=== PATIENT | female | born 1995 | race Caucasian/White ===

== ENCOUNTER 2018-06-04 11:03 | Emergency (ER) | payer BC, OTHER, MEDICAID ==
[~2018-06-04] VITALS: Ht 157.5 cm; Wt 103.2 kg
[~2018-06-04 11:03] MED LIST: no home meds
[2018-06-04 12:11] LABS: BASO # 0.1 10^3/uL (0.0-0.2); BASO % 0.8 % (0.0-1.0); EOS # 0.6 10^3/uL (0.0-0.50); EOS % 6.7 % (0.0-3.0); HEMATOCRIT 39.6 % (36.0-47.0); HEMOGLOBIN 13.5 g/dl (12.0-15.5); LYMPH # 2.3 10^3/uL (1.5-6.5); LYMPH % 24.8 % (24.0-44.0); MEAN CORPUSCULAR HEMOGLOBIN 28.4 pg (27.0-33.0); MEAN CORPUSCULAR HGB CONC 34.1 g/dl (32.0-36.5); MEAN CORPUSCULAR VOLUME 83.4 fl (80.0-96.0); MONO # 0.5 10^3/uL (0.0-0.8); MONO % 5.8 % (0.0-5.0); NEUTROPHILS # 5.7 10^3/uL (1.8-7.7); NEUTROPHILS % 61.6 % (36.0-66.0); PLATELET COUNT, AUTOMATED 313 10^3/uL (150-450); RED BLOOD COUNT 4.75 10^6/uL (4.00-5.40); WHITE BLOOD COUNT 9.3 10^3/uL (4.0-10.0)
--- NOTE | 2018-06-04 13:35 | REP ---
Pelvic sonography: History: Cramping and vaginal bleeding. Findings: Transabdominal and transvaginal scanning are performed. Uterine dimensions are normal at 7.2 x 3.4 x 4.4 cm. Endometrial echo 0.7 cm thick and placed. Uterine texture is homogeneous. A normal right ovary is seen measuring 2.6 x 2.0 x 1.8 cm. Left ovary measures 2.4 x 2.2 x 1.7 cm. Doppler flow is normal in both ovaries. Resistive indices are measured at 0.57 on the right and 0.62 on the left. There is a 1.9 x 1.5 x 1.7 cm complex area in the left ovary which is most likely a small ovarian dermoid. There are reflective echoes within this which cast acoustic shadowing which may reflect calcification. No free fluid is seen in the cul-de-sac. Impression: 1.9 cm probable ovarian dermoid left ovary. Otherwise normal pelvic sonography. Electronically Signed by Shiraz Castro MD 06/04/2018 04:41 P
[2018-06-04] MEDS ORDERED: BACT800T5 PO (14:11)
[2018-06-04 14:22] VITALS: BP 124/76
--- NOTE | 2018-06-09 12:34 | ED PDOC ---
Post-Departure Follow-Up dr nunes faxed formal report of pelvic us for fu Richard Wiggins MD Jun 09, 2018 12:34
== END 2018-06-04 14:27 | disposition home or self-care (01) ==
LOC: M ED 11:03
DX: N83.202 Unspecified ovarian cyst, left side (principal); N30.00 Acute cystitis without hematuria; F41.9 Anxiety disorder, unspecified; F33.9 Major depressive disorder, recurrent, unspecified

== ENCOUNTER 2018-06-06 01:07 | Emergency (ER) | payer BC, OTHER, MEDICAID ==
[~2018-06-06] VITALS: Ht 157.5 cm; Wt 103.2 kg
[~2018-06-06 01:07] MED LIST changes: +BACT800T5 PO
[2018-06-06] MEDS ORDERED: WELLTAB40 PO (01:11)
[2018-06-06] MEDS ORDERED: PROZ40CA PO (01:11)
[2018-06-06 02:41] LABS: HEMATOCRIT 42.7 % (36.0-47.0); HEMOGLOBIN 14.2 g/dl (12.0-15.5); MEAN CORPUSCULAR HEMOGLOBIN 28.5 pg (27.0-33.0); MEAN CORPUSCULAR HGB CONC 33.3 g/dl (32.0-36.5); MEAN CORPUSCULAR VOLUME 85.7 fl (80.0-96.0); PLATELET COUNT, AUTOMATED 255 10^3/uL (150-450); RED BLOOD COUNT 4.98 10^6/uL (4.00-5.40); WHITE BLOOD COUNT 8.4 10^3/uL (4.0-10.0)
[2018-06-06 02:52] LABS: HCG, SERUM QUALITATIVE NEGATIVE (NEGATIVE)
[2018-06-06 03:25] LABS: ALBUMIN 3.6 GM/DL (3.2-5.2); ALT/SGPT 20 U/L (12-78); BILIRUBIN,DIRECT < 0.1 MG/DL (0.0-0.2); BILIRUBIN,TOTAL 0.3 MG/DL (0.2-1.0); BLOOD UREA NITROGEN 9 MG/DL (7-18); CALCIUM LEVEL 8.4 MG/DL (8.5-10.1); CARBON DIOXIDE LEVEL 20 MEQ/L (21-32); CHLORIDE LEVEL 107 MEQ/L (98-107); CREATININE FOR GFR 0.73 MG/DL (0.55-1.30); GLUCOSE, FASTING 75 MG/DL (70-100); POTASSIUM SERUM 3.7 MEQ/L (3.5-5.1); SALICYLATE LEVEL < 1.7 MG/DL (5.0-30.0); SODIUM LEVEL 139 MEQ/L (136-145); TOTAL PROTEIN 7.1 GM/DL (6.4-8.2)
[2018-06-06 03:26] LABS: ACETAMINOPHEN LEVEL < 2.0 UG/ML (10.0-30.0); ETHYL ALCOHOL (ETHANOL) < 0.003 % (0.000-0.010)
[2018-06-06 03:38] VITALS: BP 130/73
== END 2018-06-06 03:39 | disposition home or self-care (01) ==
LOC: M ED 01:07
DX: F33.9 Major depressive disorder, recurrent, unspecified (principal); Z91.5 Personal history of self-harm; Z79.899 Other long term (current) drug therapy
CPT/HCPCS: 36415; 80048; 80076; 84443; 84703; 85027; 99284; G0480

== ENCOUNTER → 2018-07-27 | Outpatient (REF) | payer OTHER, MEDICAID ==
[~2018-07-27] MED LIST changes: +PROZ40CA PO; +WELLTAB40 PO
== END ==
LOC: M LAB REF 19:04
PROVIDERS: ATTEND Physician Assistant Medical
DX: J02.9 Acute pharyngitis, unspecified (principal)

== ENCOUNTER → 2018-08-12 | Outpatient (CLI) | payer BC, OTHER, MEDICAID ==
--- NOTE | 2018-08-12 15:42 | REP ---
Clinical: Follow up left ovarian lesion. Technique: Transabdominal pelvic ultrasound followed by transvaginal examination for better evaluation of the endometrium and adnexa with color Doppler evaluation of the ovaries. Comparison: 06/04/2018. Findings: Normal anteverted uterus measures 7.6 x 3.2 x 4.5 cm. Endometrial complex measures 3.7 mm thickness. Trace amount of fluid in the endocervical canal and small cervical calcification are nonspecific and likely incidental findings. The bilateral ovaries are normal in vascularity without torsion. The right ovary is normal in appearance and measures 3.3 x 1.8 x 2.6 cm. The left ovary measures 4.5 x 2.6 x 2.1 cm and again includes a complex hyperechoic lesion with cystic component measuring approximately 2.2 x 1.6 x 1.7 cm likely representing dermoid/teratoma. No pelvic fluid or adnexal mass lesion. Impression: 1. Essentially normal uterus and right ovary. 2. Complex lesion in the left ovary similar to prior examination likely representing dermoid/teratoma. Electronically Signed by Bandar Peterson MD 08/12/2018 03:34 P
== END ==
LOC: M RAD 14:15
PROVIDERS: ATTEND Specialist
DX: N83.292 Other ovarian cyst, left side (principal)

== ENCOUNTER 2018-09-20 09:11 | Day surgery (SDC) | payer BC, OTHER, MEDICAID ==
[~2018-09-20] VITALS: Ht 157.5 cm; Wt 102.9 kg
[2018-09-20 09:39] LABS: HEMATOCRIT 39.8 % (36.0-47.0); HEMOGLOBIN 13.4 g/dl (12.0-15.5); MEAN CORPUSCULAR HEMOGLOBIN 29.1 pg (27.0-33.0); MEAN CORPUSCULAR HGB CONC 33.7 g/dl (32.0-36.5); MEAN CORPUSCULAR VOLUME 86.5 fl (80.0-96.0); PLATELET COUNT, AUTOMATED 247 10^3/uL (150-450); WHITE BLOOD COUNT 9.9 10^3/uL (4.0-10.0)
[2018-09-20 10:05] LABS: URINE PREG TEST NEGATIVE (NEGATIVE)
[2018-09-20] MEDS ORDERED: ROCURONIUM BROMIDE 50 MG/5 ML VIAL As Ordered ONE (10:29)
[2018-09-20] MEDS ORDERED: PROPOFOL 200 MG/20 ML VIAL As Ordered ONE (10:29)
[2018-09-20] MEDS ORDERED: fentaNYL 250 MCG/5 ML INJECTION (J3010) As Ordered ONE (10:29)
[2018-09-20] MEDS ORDERED: LIDOCAINE 2% INJ 100 MG/5 ML SDV (FOR ANES.) As Ordered ONE (10:29)
[2018-09-20] MEDS ORDERED: MIDAZOLAM INJ 2 MG/2 ML VIAL (J2250) As Ordered ONE (10:30)
[2018-09-20] MEDS ORDERED: BUPIVACAINE HCL 0.25% 30 ML VIAL As Ordered ONE (11:13)
[2018-09-20] MEDS ORDERED: KETOROLAC 60 MG/2 ML VIAL (J1885) As Ordered ONE (12:12)
[2018-09-20] MEDS ORDERED: ONDANSETRON 4MG/2ML VIAL (J2405) As Ordered ONE (12:12)
[2018-09-20] MEDS ORDERED: GLYCOPYRROLATE INJ 0.2 MG/ML 2 ML VIAL As Ordered ONE (12:12)
[2018-09-20] MEDS ORDERED: LR 1,000 ML IV SCH ×2 (13:15)
[2018-09-20] MEDS ORDERED: ONDANSETRON 4MG/2ML VIAL (J2405) IV PRN (13:15)
[2018-09-20] MEDS ORDERED: PERCOCET 5MG/325MG TAB PO PRN ×2 (13:15)
[2018-09-20] MEDS ORDERED: fentaNYL 100 MCG/2 ML INJECTION (J3010) IV PRN (13:15)
[2018-09-20] MEDS ORDERED: OXYC1TAB23 PO (13:16)
[2018-09-20] MEDS ORDERED: IBUP-1022 PO (13:21)
--- NOTE | 2018-09-20 13:55 | RO ---
DATE OF PROCEDURE: 09/20/2018 PREOPERATIVE DIAGNOSIS: Left ovarian dermoid cyst. POSTOPERATIVE DIAGNOSES: 1. Left ovarian dermoid cyst. 2. Endometriosis. PROCEDURE: SURGEON: Roberto Bañuelos MD BRAIDING OPERATOR: Yue Zavala MD ANESTHESIA: General endotracheal. ESTIMATED BLOOD LOSS: 10 mL. URINE OUTPUT: 300 mL. FINDINGS: 2 cm dermoid cyst on the left ovary near the origin of the utero-ovarian ligament. Normal appearing right ovary. Normal appearing fallopian tube. Stage 1 endometriosis involving posterior cul-de-sac, left ovarian fossa. OPERATIVE SUMMARY: Patient taken to the operating room where general endotracheal anesthesia was induced. She was prepped and draped in a sterile fashion in the dorsal lithotomy position. A Shellcatch uterine tenaculum was placed as a manipulator. A Miguel catheter was placed. Periumbilical incision made with a scalpel. A Veress needle was placed through this incision while tenting up on the skin of the abdomen. Intra-abdominal location of the Veress needle was assessed using a saline filled syringe. Pneumoperitoneum was created. The Veress needle was removed. An 11 mm trocar using Black coiniport was inserted through this incision. An 11 scope with camera was used to visual the abdomen and pelvis. Three 5 mm suprapubic ports were placed under direct visualization. The left ovary was elevated with a grasping instrument. It was stabilized with a second grasping instrument. The Harmonic scalpel was used to dissect dermoid cyst from the left ovary. This was dissected out in its entirety. This was removed through the suprapubic port in several pieces. This cyst was small, approximately 2 cm in size. The right ovary was inspected thoroughly and appeared to be normal and did not continue any ovarian cyst. Multiple endometriosis implants were noted in the posterior cul-de-sac and left ovarian fossa. Harmonic scalpel was used to coagulate endometriosis implants that were away from bowel or ureter. Numerous implants were ablated. The pneumoperitoneum was released. All instruments were removed. Skin was closed with #4-0 Monocryl subcuticular sutures. Sponge, instrument and needle counts were correct. Yue Zavala MD assisted with all aspects of the proceudre. He helped place the ports. He helped dissect the cyst from the ovary. He was an integral part of the procedure. LEEROY
[2018-09-20 14:24] VITALS: BP 127/73
[2018-09-20] MEDS ORDERED: LR 1,000 ML IV ONE (14:45)
== END 2018-09-20 14:40 | disposition home or self-care (01) ==
LOC: M SDC 09:11
PROVIDERS: ATTEND Specialist
DX: D27.1 Benign neoplasm of left ovary (principal); N80.3 Endometriosis of pelvic peritoneum; F41.9 Anxiety disorder, unspecified; F32.9 Major depressive disorder, single episode, unspecified; F43.10 Post-traumatic stress disorder, unspecified; E66.9 Obesity, unspecified; Z68.42 Body mass index [BMI] 45.0-49.9, adult

== ENCOUNTER → 2018-11-22 | Outpatient (REF) | payer OTHER, MEDICAID ==
[~2018-11-22] MED LIST changes: +IBUP-1022 PO; +OXYC1TAB23 PO
[2018-11-23 09:46] LABS: CHLAMYDIA DNA AMPLIFICATION NEGATIVE (NEGATIVE); GC DNA AMPLIFICATION NEGATIVE (NEGATIVE)
== END ==
LOC: M LAB REF 19:04
PROVIDERS: ATTEND Physician Assistant
DX: R30.0 Dysuria (principal)

== ENCOUNTER → 2019-05-10 | Outpatient (CLI) | payer BC, OTHER ==
[2019-05-10 16:10] LABS: BASO % 0.4 % (0.0-1.0); EOS # 0.5 10^3/uL (0.0-0.5); EOS % 5.1 % (0.0-3.0); HEMATOCRIT 39.5 % (36.0-47.0); HEMOGLOBIN 13.3 g/dl (12.0-15.5); LYMPH # 1.9 10^3/uL (1.5-5.0); LYMPH % 19.8 % (24.0-44.0); MEAN CORPUSCULAR HGB CONC 33.7 g/dl (32.0-36.5); MEAN CORPUSCULAR VOLUME 86.2 fl (80.0-96.0); MONO # 0.6 10^3/uL (0.0-0.8); MONO % 6.2 % (0.0-5.0); NEUTROPHILS # 6.7 10^3/uL (1.5-8.5); NEUTROPHILS % 68.1 % (36.0-66.0); PLATELET COUNT, AUTOMATED 221 10^3/uL (150-450); RED BLOOD COUNT 4.58 10^6/uL (4.00-5.40); WHITE BLOOD COUNT 9.8 10^3/uL (4.0-10.0)
[2019-05-10 17:31] LABS: CHLAMYDIA DNA AMPLIFICATION NEGATIVE (NEGATIVE); GC DNA AMPLIFICATION NEGATIVE (NEGATIVE)
[2019-05-13 11:09] LABS: HEPATITIS C VIRUS ABY INDEX 0.2 INDEX (<0.8); HIV 1&2 SCREEN CENTAUR NEGATIVE (NEGATIVE); RUBELLA IgG QUALITATIVE IMMUNE (IMMUNE)
== END ==
LOC: M PLALAB 13:24
PROVIDERS: ATTEND Advanced Practice Midwife
DX: Z34.01 Encounter for supervision of normal first pregnancy, first trimester (principal); Z3A.11 11 weeks gestation of pregnancy

== ENCOUNTER → 2019-06-07 | Outpatient (CLI) | payer BC, MEDICAID ==
--- NOTE | 2019-06-08 05:10 | REP ---
Clinical: Anatomical evaluation. Comparison: None . Findings: Examination demonstrates a single live intrauterine in breech presentation. motion is identified by technologist. Placenta is noted anterior and grade zero without evidence for placenta previa or abruption. Amniotic fluid volume is normal. Cervix measures 3.1 cm in length and appears closed. No evidence for nuchal cord. Gestational age by current measurements 18 weeks 0 days with AVNI 11/08/2019 . FHR equals 147 beats per minute. BPD 4.0 cm 18 weeks 1 day HC 15.3 cm 18 weeks 2 days AC 11.8 cm 17 weeks 4 days FL 2.7 cm 18 weeks 2 days HL 2.8 cm 19 weeks 0 days HC/AC ratio 1.30 Estimated weight 216 grams ( 44th percentile). Anatomical assessment demonstrates normal structures including cranium, choroid plexus, cavum, cerebellum/posterior fossa, facial features, lungs, four-chamber heart/ventricular outflow tracts, diaphragm, stomach, cord insertion/three-vessel cord, kidneys/bladder, spine, and extremities. Impression: Single live intrauterine in breech presentation demonstrating appropriate estimated weight. 2. Anatomical assessment is complete and normal. No gross abnormalities are identified.
== END ==
LOC: M WHC 12:49
PROVIDERS: ATTEND Advanced Practice Midwife
DX: Z34.82 Encounter for supervision of other normal pregnancy, second trimester (principal)

== ENCOUNTER 2019-07-05 11:30 | Outpatient (CLI) | payer BC, MEDICAID, OTHER ==
[~2019-07-05] VITALS: Ht 160 cm; Wt 109.9 kg
[2019-07-05 11:49] VITALS: BP 134/87
[2019-07-05] MEDS ORDERED: FLUO20CA20 PO (12:05)
[2019-07-05] MEDS ORDERED: PRENTAB9 PO (12:05)
== END 2019-07-05 12:30 | disposition home or self-care (01) ==
LOC: M LDO 11:30
PROVIDERS: ATTEND Obstetrics & Gynecology
DX: O26.852 Spotting complicating pregnancy, second trimester (principal); Z3A.22 22 weeks gestation of pregnancy; Z79.899 Other long term (current) drug therapy
CPT/HCPCS: 76815; G0378; G0463

== ENCOUNTER → 2019-08-02 | Outpatient (REF) | payer OTHER, MEDICAID ==
[~2019-08-02] MED LIST changes: +FLUO20CA20 PO; +PRENTAB9 PO
[2019-08-02 11:56] LABS: HEMATOCRIT 34.5 % (36.0-47.0); HEMOGLOBIN 11.9 g/dl (12.0-15.5); MEAN CORPUSCULAR HEMOGLOBIN 30.7 pg (27.0-33.0); MEAN CORPUSCULAR HGB CONC 34.5 g/dl (32.0-36.5); MEAN CORPUSCULAR VOLUME 89.1 fl (80.0-96.0); PLATELET COUNT, AUTOMATED 193 10^3/uL (150-450); RED BLOOD COUNT 3.87 10^6/uL (4.00-5.40); WHITE BLOOD COUNT 8.9 10^3/uL (4.0-10.0)
== END ==
LOC: M PLALAB 09:22
PROVIDERS: ATTEND Advanced Practice Midwife
DX: Z34.02 Encounter for supervision of normal first pregnancy, second trimester (principal); Z3A.00 Weeks of gestation of pregnancy not specified
CPT/HCPCS: 82950; 85027; 86850; 86900; 86901; J2790

== ENCOUNTER → 2019-10-11 | Outpatient (REF) | payer OTHER, MEDICAID | LOC: M SFHCWAGY 10:13 | PROVIDERS: ATTEND Obstetrics & Gynecology | DX: Z34.83 Encounter for supervision of other normal pregnancy, third trimester (principal); Z3A.36 36 weeks gestation of pregnancy ==

== ENCOUNTER 2019-11-11 04:57 | Inpatient (IN) | payer BC, OTHER, MEDICAID ==
[~2019-11-11] VITALS: Ht 160 cm; Wt 123.6 kg
[2019-11-11 05:19] VITALS: BP 133/79
[2019-11-11] MEDS ORDERED: OXYTOCIN 30 UNITS IN 0.9% NaCl 500ML IV BAG (J2590) As Ordered ONE (06:22)
[2019-11-11 06:45] VITALS: BP 134/74
[2019-11-11 07:00] VITALS: BP 139/69
[2019-11-11 07:10] LABS: HEMATOCRIT 35.8 % (36.0-47.0); HEMOGLOBIN 12.2 g/dl (12.0-15.5); MEAN CORPUSCULAR HEMOGLOBIN 28.4 pg (27.0-33.0); MEAN CORPUSCULAR HGB CONC 34.1 g/dl (32.0-36.5); MEAN CORPUSCULAR VOLUME 83.3 fl (80.0-96.0); PLATELET COUNT, AUTOMATED 227 10^3/uL (150-450)
[2019-11-11 07:15] VITALS: BP 139/64
[2019-11-11 08:24] LABS: ALT/SGPT 22 U/L (12-78); BILIRUBIN,TOTAL 0.4 MG/DL (0.2-1.0); CREATININE FOR GFR 0.56 MG/DL (0.55-1.30); GLOMERULAR FILTRATION RATE > 60.0 (>60); LDH LACTATE DEHYDROGENASE 305 U/L (84-246); URIC ACID 2.4 MG/DL (2.6-6.0)
--- NOTE | 2019-11-11 09:05 | IPNPDOC ---
Text Note Date of Service The patient was seen on 11/11/19. NOTE Pt [place] screen 18.. Started prozac 20mg about a month ago. Reports feeling a bit better but not great. Has call into her psychiatrist Increased prozac to 40mg daily. VS,Fishbone, I+O VS, Fishbone, I+O Laboratory Tests 11/11/19 06:10 Vital Signs Date Time Temp Pulse Resp B/P (MAP) Pulse Ox O2 Delivery O2 Flow Rate FiO2 11/11/19 07:15 80 139/64 (89) 11/11/19 05:19 97.7 18 Jahaira John CNM Nov 11, 2019 09:05
[2019-11-11] MEDS ORDERED: FLUO20CA22 PO (09:06)
[2019-11-11 09:19] VITALS: BP 137/77
[2019-11-11] MEDS ORDERED: MOM 30ML SUSPENSION UDC PO PRN (10:15)
[2019-11-11] MEDS ORDERED: ACETAMINOPHEN 500 MG TAB PO PRN (10:15)
[2019-11-11] MEDS ORDERED: METHYLERGONOVINE MALEATE 0.2 MG TAB PO PRN (10:15)
[2019-11-11] MEDS ORDERED: IBUPROFEN 600MG TAB PO PRN (10:15)
[2019-11-11] MEDS ORDERED: DIBUCAINE 1% OINTMENT 30GM TOP PRN (10:15)
[2019-11-11] MEDS ORDERED: ACETAMINOPHEN TAB 650MG DOSE (2X325MG) PO PRN (10:15)
[2019-11-11] MEDS ORDERED: ANUSOL HC CREAM 30GM TOP PRN (10:15)
[2019-11-11] MEDS ORDERED: RHOGAM 300 MCG (1500 IU) INJ (J2790) IM SCH (10:15)
[2019-11-11] MEDS ORDERED: MEASLES,MUMPS,RUBELLA VACCINE INJ (MMR-II) (90707) SC SCH (10:15)
[2019-11-11] MEDS: FLUoxetine 20 MG CAP PO SCH (10:32)
[2019-11-11] MEDS ORDERED: LIDOCAINE 1% SDV 5ML VIAL IM ONE (12:45)
[2019-11-11] MEDS ORDERED: LIDOCAINE 1% MDV 20ML VIAL IM ONE (13:00)
[2019-11-11 18:08] VITALS: BP 119/63
[2019-11-11] MEDS: IBUPROFEN 800 MG TAB PO PRN (19:56)
[2019-11-11] MEDS: DOCUSATE SODIUM 100 MG CAP PO PRN (19:56)
[2019-11-12 06:03] VITALS: BP 112/70
--- NOTE | 2019-11-12 07:23 | IPNPDOC ---
Text Note Date of Service The patient was seen on 11/12/19. NOTE PP#1 Feels well. Adequate pain management. . Voiding VSS, afebrile, normotensive Breasts soft, nipples intact Fundus firm, NT, down 1 FB Lochia rubra scant without odor Perineum intact PP#1 Prozac dose increased yesterday. Routine care. Anticipate D/C in am VS,Fishbone, I+O VS, Fishbone, I+O Vital Signs Date Time Temp Pulse Resp B/P (MAP) Pulse Ox O2 Delivery O2 Flow Rate FiO2 11/12/19 06:03 97.8 56 17 112/70 (84) 98 Room Air I&O- Last 24 Hours up to 6 AM 11/12/19 06:00 Output Total 300 ml Balance -300 ml Jahaira John CNM Nov 12, 2019 07:23
[2019-11-12] MEDS: IBUPROFEN 800 MG TAB PO PRN (07:26)
[2019-11-12] MEDS: FLUoxetine 20 MG CAP PO SCH (08:50)
[2019-11-12] MEDS: PRENATAL VITAMINS CHEWABLE TABLET PO SCH ×2 (08:50→08:56)
[2019-11-12 18:00] VITALS: BP 112/61
[2019-11-12] MEDS: DOCUSATE SODIUM 100 MG CAP PO PRN (20:13)
[2019-11-13] MEDS: IBUPROFEN 800 MG TAB PO PRN (05:53)
[2019-11-13 06:00] VITALS: BP 124/71
[2019-11-13] MEDS: FLUoxetine 20 MG CAP PO SCH (08:39)
[2019-11-13] MEDS ORDERED: ACET-683 PO (08:59)
[2019-11-13] MEDS ORDERED: IBUP80TA PO (08:59)
[2019-11-13 17:43] VITALS: BP 116/60
== END 2019-11-13 18:55 | disposition home or self-care (01) | DRG 560 ==
LOC: M LDO 04:57 → M LDI 05:50 → M OBS 09:06
PROVIDERS: ADMIT Obstetrics & Gynecology; ATTEND Obstetrics & Gynecology
PROC: 10E0XZZ Delivery of Products of Conception, External Approach (ICD-10-PCS; principal; 2019-11-11)
PROC: 0HQ9XZZ Repair Perineum Skin, External Approach (ICD-10-PCS; 2019-11-11)
DX: O48.0 Post-term pregnancy (principal); O99.344 Other mental disorders complicating childbirth; F32.9 Major depressive disorder, single episode, unspecified; Z37.0 Single live birth; Z3A.40 40 weeks gestation of pregnancy; F43.10 Post-traumatic stress disorder, unspecified; F41.9 Anxiety disorder, unspecified; O70.0 First degree perineal laceration during delivery

== ENCOUNTER → 2020-02-20 | Outpatient (CLI) | payer BC, OTHER, MEDICAID ==
[~2020-02-20] MED LIST changes: +ACET-683 PO; +FLUO20CA22 PO; +IBUP80TA PO
[2020-02-20 15:36] LABS: BASO # 0.1 10^3/uL (0.0-0.2); BASO % 1.1 % (0.0-1.0); EOS # 0.7 10^3/uL (0.0-0.5); EOS % 8.6 % (0.0-3.0); HEMATOCRIT 38.5 % (36.0-47.0); HEMOGLOBIN 12.8 g/dl (12.0-15.5); LYMPH % 25.7 % (24.0-44.0); MEAN CORPUSCULAR HEMOGLOBIN 28.3 pg (27.0-33.0); MEAN CORPUSCULAR HGB CONC 33.2 g/dl (32.0-36.5); MEAN CORPUSCULAR VOLUME 85.2 fl (80.0-96.0); MONO # 0.5 10^3/uL (0.0-0.8); MONO % 6.2 % (0.0-5.0); NEUTROPHILS # 4.4 10^3/uL (1.5-8.5); NEUTROPHILS % 58.1 % (36.0-66.0); PLATELET COUNT, AUTOMATED 219 10^3/uL (150-450); RED BLOOD COUNT 4.52 10^6/uL (4.00-5.40); WHITE BLOOD COUNT 7.6 10^3/uL (4.0-10.0)
[2020-02-20 16:12] LABS: ALBUMIN 3.5 GM/DL (3.2-5.2); ALT/SGPT 24 U/L (12-78); BILIRUBIN,TOTAL 0.5 MG/DL (0.2-1.0); BLOOD UREA NITROGEN 11 MG/DL (7-18); CARBON DIOXIDE LEVEL 27 MEQ/L (21-32); CHLORIDE LEVEL 108 MEQ/L (98-107); CREATININE FOR GFR 0.76 MG/DL (0.55-1.30); GLOMERULAR FILTRATION RATE > 60.0 (>60); GLUCOSE, FASTING 108 MG/DL (70-100); POTASSIUM SERUM 4.1 MEQ/L (3.5-5.1); SODIUM LEVEL 141 MEQ/L (136-145)
[2020-02-20 16:14] LABS: CORTISOL BASELINE 19.1 UG/DL (4.3-22.4)
[2020-02-20 16:15] LABS: ESTRADIOL < 19.0 PG/ML; PROGESTERONE 0.26 NG/ML
[2020-02-28 01:10] LABS: NORFLUOXETINE LEVEL 306 ng/mL (72-258); PROZAC (FLUOXETINE) 394 ng/mL (91-302)
== END ==
LOC: M PLALAB 13:15
PROVIDERS: ATTEND Nurse Practitioner Psychiatric/Mental Health
DX: F33.2 Major depressive disorder, recurrent severe without psychotic features (principal)
CPT/HCPCS: 36415; 80053; 82533; 82670; 84144; 84439; 84443; 85025; G0480

== ENCOUNTER → 2020-05-17 | Outpatient (REF) | payer OTHER, MEDICAID | LOC: M SFHCWAGY 16:48 | PROVIDERS: ATTEND Obstetrics & Gynecology | DX: Z11.3 Encounter for screening for infections with a predominantly sexual mode of transmission (principal) ==

== ENCOUNTER → 2020-08-14 | Outpatient (CLI) | payer BC, OTHER, MEDICAID ==
--- NOTE | 2020-08-14 21:59 | ECGEPIP ---
[facility] Test Date: 2020-08-14 Pat Name: MARZENA DOVER Department: Room: - Gender: Female Relocation Director: : [id number] Requested By: Brook Staerns Order Number: [id number] Reading MD: Sam Zimmerman Measurements Intervals [place] Rate: 62 P: 42 SD: 146 QRS: 14 QRSD: 86 T: 22 QT: 428 QTc: 434 Interpretive Statements Normal sinus rhythm Normal Electronically Signed on 08-14-2020 21:59:02 EDT by Sam Zimmerman
== END ==
LOC: M EKG 14:49
PROVIDERS: ATTEND Nurse Practitioner Psychiatric/Mental Health
DX: F90.0 Attention-deficit hyperactivity disorder, predominantly inattentive type (principal); I49.9 Cardiac arrhythmia, unspecified

== ENCOUNTER 2020-09-24 02:01 | Emergency (ER) | payer BC, OTHER, MEDICAID ==
[~2020-09-24] VITALS: Ht 160 cm; Wt 102.0 kg
[2020-09-24] MEDS ORDERED: ADDE10CA3 PO (02:12)
[2020-09-24] MEDS ORDERED: BUSP10TA PO (02:15)
[2020-09-24] MEDS ORDERED: ETON1VAG3 VG (02:15)
[2020-09-24] MEDS ORDERED: CETI-24 PO (02:15)
[2020-09-24] MEDS ORDERED: FLUO60TA PO (02:15)
[2020-09-24 05:31] LABS: URINE PREG TEST NEGATIVE (NEGATIVE)
[2020-09-24] MEDS ORDERED: dexameTHASONE 20MG/5ML VIAL (J1100 PER 1MG) IM ONE (06:30)
[2020-09-24] MEDS ORDERED: IBUPROFEN 800 MG TAB PO ONE (06:30)
[2020-09-24] MEDS ORDERED: ATRO0.063 INH (07:16)
[2020-09-24] MEDS ORDERED: CEPALOZ8 PO (07:16)
--- NOTE | 2020-09-24 07:20 | REPVR ---
PROCEDURE INFORMATION: Exam: XR Chest Exam date and time: 09/24/2020 6:38 AM Age: 25 years old Clinical indication: Other: Pleurisy TECHNIQUE: Imaging protocol: XR of the chest. Views: 2 views. COMPARISON: No relevant prior studies available. FINDINGS: Lungs: Unremarkable. No consolidation. Pleural spaces: Unremarkable. No pleural effusion. No pneumothorax. Heart/Mediastinum: Unremarkable. No cardiomegaly. Bones/joints: Unremarkable. IMPRESSION: No acute findings. Electronically signed by: Sarah Aragon On 09/24/2020 07:20:31 AM
[2020-09-24 07:27] VITALS: BP 129/81
== END 2020-09-24 07:28 | disposition home or self-care (01) ==
LOC: M ED 02:01
DX: J02.9 Acute pharyngitis, unspecified (principal); T88.1XXA Other complications following immunization, not elsewhere classified, initial encounter
CPT/HCPCS: 71046; 84703; 87798; 96372; 99283; J1100

== ENCOUNTER → 2020-12-24 | Outpatient (REF) ==
[~2020-12-24] MED LIST changes: +ADDE10CA3 PO; +ATRO0.063 INH; +BUSP10TA PO; +CEPALOZ8 PO; +CETI-24 PO; +ETON1VAG3 VG; +FLUO60TA PO
== END ==
LOC: M LABSMTC 11:13
PROVIDERS: ATTEND Family Medicine
DX: Z20.822 Contact with and (suspected) exposure to COVID-19 (principal); Z11.59 Encounter for screening for other viral diseases

== ENCOUNTER → 2021-03-15 | Outpatient (REF) | LOC: M LABSMTC 09:58 | PROVIDERS: ATTEND Family Medicine | DX: Z20.828 Contact with and (suspected) exposure to other viral communicable diseases (principal); Z11.52 Encounter for screening for COVID-19 ==

== ENCOUNTER → 2021-03-19 | Outpatient (REF) ==
[2021-03-19 11:18] LABS: RSV AMPLIFICATION NEGATIVE (NEGATIVE)
== END ==
LOC: M EMP 07:56
PROVIDERS: ATTEND Family Medicine
DX: Z20.822 Contact with and (suspected) exposure to COVID-19 (principal)

== ENCOUNTER → 2021-04-24 | Outpatient (REF) | LOC: M LABSMTC 10:17 | PROVIDERS: ATTEND Family Medicine | DX: Z20.822 Contact with and (suspected) exposure to COVID-19 (principal) ==

== ENCOUNTER → 2021-04-29 | Outpatient (REF) ==
[~2021-04-29] MED LIST changes: +FLUO-96 PO; -FLUO20CA20 PO
== END ==
LOC: M LABSMTC 09:46
PROVIDERS: ATTEND Family Medicine
DX: Z20.822 Contact with and (suspected) exposure to COVID-19 (principal)

== ENCOUNTER → 2021-08-05 | Outpatient (REF) ==
[2021-08-05 13:42] LABS: RSV AMPLIFICATION NEGATIVE (NEGATIVE)
== END ==
LOC: M LABSMTC 11:50
PROVIDERS: ATTEND Family Medicine
DX: Z20.822 Contact with and (suspected) exposure to COVID-19 (principal)

== ENCOUNTER → 2022-03-06 | Outpatient (REF) ==
[~2022-03-06] MED LIST changes: +BENZ1LOZ9 PO; -CEPALOZ8 PO
[2022-03-06 13:35] LABS: RSV AMPLIFICATION NEGATIVE (NEGATIVE)
== END ==
LOC: M LABSMTC 11:34
PROVIDERS: ATTEND Family Medicine
DX: Z02.9 Encounter for administrative examinations, unspecified (principal)

== ENCOUNTER 2022-06-10 01:37 | Emergency (ER) | payer OTHER, BC, MEDICAID ==
[~2022-06-10] VITALS: Ht 160 cm; Wt 108.1 kg
[2022-06-10 01:48] VITALS: BP 153/96
== END 2022-06-10 03:18 | disposition home or self-care (01) ==
LOC: M ED 01:37
DX: S06.0X0A Concussion without loss of consciousness, initial encounter (principal); Y04.0XXA Assault by unarmed brawl or fight, initial encounter; F43.10 Post-traumatic stress disorder, unspecified; F17.200 Nicotine dependence, unspecified, uncomplicated; F32.A Depression, unspecified; Y99.0 Civilian activity done for income or pay; Z79.64 Long term (current) use of myelosuppressive agent; Z79.83 Long term (current) use of bisphosphonates; Z79.899 Other long term (current) drug therapy

== ENCOUNTER → 2022-07-04 | Outpatient (REF) | LOC: M LABSMTC 09:16 | PROVIDERS: ATTEND Family Medicine | DX: Z11.52 Encounter for screening for COVID-19 (principal) ==

== ENCOUNTER 2022-09-03 15:57 | Emergency (ER) | payer BC, OTHER, MEDICAID ==
[~2022-09-03] VITALS: Ht 157.5 cm; Wt 126.9 kg
[2022-09-03 16:47] LABS: HEMATOCRIT 37.7 % (36.0-47.0); HEMOGLOBIN 12.3 g/dl (12.0-15.5); MEAN CORPUSCULAR HEMOGLOBIN 27.4 pg (27.0-33.0); MEAN CORPUSCULAR HGB CONC 32.6 g/dl (32.0-36.5); PLATELET COUNT, AUTOMATED 328 10^3/uL (150-450); RED BLOOD COUNT 4.49 10^6/uL (4.00-5.40); WHITE BLOOD COUNT 11.2 10^3/uL (4.0-10.0)
[2022-09-03 17:00] LABS: ETHYL ALCOHOL (ETHANOL) < 0.003 % (0.000-0.010)
[2022-09-03 17:02] LABS: ACETAMINOPHEN LEVEL < 2.0 UG/ML (10.0-20.0); ALBUMIN 3.9 G/DL (3.2-5.2); ALKALINE PHOSPHATASE 83 U/L (46-116); ALT/SGPT 26 U/L (7.0-40); AST/SGOT 27 U/L (<34); BILIRUBIN,DIRECT 0.3 MG/DL (<0.4); BILIRUBIN,TOTAL 0.7 MG/DL (0.3-1.2); BLOOD UREA NITROGEN 10 MG/DL (9-23); CARBON DIOXIDE LEVEL 26 MMOL/L (20-31); CHLORIDE LEVEL 106 MMOL/L (98-107); CREATININE FOR GFR 0.57 MG/DL (0.55-1.30); GLOMERULAR FILTRATION RATE > 60.0 (>60); GLUCOSE, FASTING 81 MG/DL (60-100); POTASSIUM SERUM 3.5 MMOL/L (3.5-5.1); SALICYLATE LEVEL < 3.0 MG/DL (<30); SODIUM LEVEL 141 MMOL/L (136-145); TOTAL PROTEIN 7.3 G/DL (5.7-8.2)
[2022-09-03 17:05] LABS: THYROID STIMULATING HORMONE 0.752 uIU/ML (0.55-4.78)
[2022-09-03 17:20] LABS: AMPHETAMINES LEVEL URINE NEGATIVE (NEGATIVE)
[2022-09-03 17:21] LABS: BARBITURATES URINE NEGATIVE (NEGATIVE); BENZODIAZEPINES URINE NEGATIVE (NEGATIVE); CANNABINOIDS URINE NEGATIVE (NEGATIVE); COCAINE METABOLITE URINE NEGATIVE (NEGATIVE); METHADONE URINE NEGATIVE (NEGATIVE); OPIATES URINE NEGATIVE (NEGATIVE); PHENCYCLIDINE URINE NEGATIVE (NEGATIVE)
[2022-09-03 17:30] LABS: HCG, SERUM QUALITATIVE POSITIVE (NEGATIVE)
[2022-09-03] MEDS ORDERED: HOME MED LIST COMPLETE! XX SCH (17:55)
[2022-09-04 07:27] LABS: HCG, SERUM QUANTITATIVE 1921.4 MIU/ML (<4.2)
[2022-09-05 14:42] VITALS: BP 132/80
== END 2022-09-05 14:45 | disposition home or self-care (01) ==
LOC: M ED 15:57
DX: F32.A Depression, unspecified (principal); R89.1 Abnormal level of hormones in specimens from other organs, systems and tissues; R45.851 Suicidal ideations

== ENCOUNTER → 2023-01-02 | Outpatient (REF) | LOC: M EMP 14:57 | PROVIDERS: ATTEND Family Medicine | DX: Z11.52 Encounter for screening for COVID-19 (principal) ==

== ENCOUNTER → 2023-03-30 | Outpatient (REF) ==
[2023-03-30 13:16] LABS: RSV AMPLIFICATION NEGATIVE (NEGATIVE)
== END ==
LOC: M EMP 11:07
PROVIDERS: ATTEND Family Medicine
DX: Z11.52 Encounter for screening for COVID-19 (principal)

== ENCOUNTER → 2023-04-27 | Outpatient (REF) | payer BC, OTHER, MEDICAID ==
[2023-04-27 14:57] LABS: CHLAMYDIA DNA AMPLIFICATION NEGATIVE (NEGATIVE); GC DNA AMPLIFICATION NEGATIVE (NEGATIVE)
== END ==
LOC: M SFHCWAGY 12:48
PROVIDERS: ATTEND Obstetrics & Gynecology
DX: Z12.4 Encounter for screening for malignant neoplasm of cervix (principal); Z11.3 Encounter for screening for infections with a predominantly sexual mode of transmission

== ENCOUNTER → 2023-08-06 | Outpatient (CLI) | payer BC, MEDICAID | LOC: M WHC 10:35 | PROVIDERS: ATTEND Obstetrics & Gynecology | DX: R93.89 Abnormal findings on diagnostic imaging of other specified body structures (principal); R10.2 Pelvic and perineal pain; Z97.5 Presence of (intrauterine) contraceptive device ==

== ENCOUNTER → 2023-08-31 | Outpatient (REF) | LOC: M EMP 09:03 | PROVIDERS: ATTEND Family Medicine | DX: Z01.89 Encounter for other specified special examinations (principal) ==

== ENCOUNTER → 2023-11-03 | Outpatient (REF) ==
[~2023-11-03] MED LIST changes: +FLUO-365 PO; -FLUO20CA22 PO
== END ==
LOC: M EMP 10:07
PROVIDERS: ATTEND Family Medicine
DX: Z11.52 Encounter for screening for COVID-19 (principal)

== ENCOUNTER → 2024-01-04 | Outpatient (CLI) | payer OTHER ==
[2024-01-04 13:24] LABS: BASO # 0.1 10^3/uL (0.0-0.2); BASO % 1.1 % (0.0-1.0); EOS # 0.4 10^3/uL (0.0-0.5); EOS % 4.7 % (0.0-3.0); HEMATOCRIT 40.1 % (36.0-47.0); HEMOGLOBIN 13.3 g/dl (12.0-15.5); LYMPH # 2.1 10^3/uL (1.5-5.0); LYMPH % 23.3 % (24.0-44.0); MEAN CORPUSCULAR HEMOGLOBIN 27.9 pg (27.0-33.0); MEAN CORPUSCULAR HGB CONC 33.2 g/dl (32.0-36.5); MEAN CORPUSCULAR VOLUME 84.2 fl (80.0-96.0); MONO # 0.6 10^3/uL (0.0-0.8); NEUTROPHILS # 5.8 10^3/uL (1.5-8.5); NEUTROPHILS % 63.6 % (36.0-66.0); PLATELET COUNT, AUTOMATED 286 10^3/uL (150-450); RED BLOOD COUNT 4.76 10^6/uL (4.00-5.40)
[2024-01-04 13:41] LABS: HEMOGLOBIN A1c 4.9 % (4.0-6.0)
[2024-01-04 14:05] LABS: ALKALINE PHOSPHATASE 101 U/L (46-116); ALT/SGPT 18 U/L (7.0-40); AST/SGOT 16 U/L (<34); BILIRUBIN,TOTAL 1.1 MG/DL (0.3-1.2); BLOOD UREA NITROGEN 16 MG/DL (9-23); CALCIUM LEVEL 9.6 MG/DL (8.5-10.1); CARBON DIOXIDE LEVEL 30 MMOL/L (20-31); CHLORIDE LEVEL 104 MMOL/L (98-107); CREATININE FOR GFR 0.63 MG/DL (0.55-1.30); FREE T4 1.23 NG/DL (0.89-1.76); GLOMERULAR FILTRATION RATE > 60.0 (>60); GLUCOSE, FASTING 77 MG/DL (60-100); MAGNESIUM LEVEL 1.9 MG/DL (1.8-2.4); POTASSIUM SERUM 4.3 MMOL/L (3.5-5.1); SODIUM LEVEL 136 MMOL/L (136-145); THYROID STIMULATING HORMONE 0.835 uIU/ML (0.55-4.78); TOTAL PROTEIN 7.5 G/DL (5.7-8.2)
[2024-01-04 14:06] LABS: FOLATE 23.24 NG/ML (>5.4); TOTAL 25(OH) VITAMIN D 18.6 NG/ML (20.0-100.0)
== END ==
LOC: M EKG 11:52
PROVIDERS: ATTEND Nurse Practitioner Psychiatric/Mental Health
DX: F40.10 Social phobia, unspecified (principal)

== ENCOUNTER → 2024-01-07 | Outpatient (REF) | LOC: M EMP 15:01 | PROVIDERS: ATTEND Family Medicine | DX: Z11.52 Encounter for screening for COVID-19 (principal) ==

== ENCOUNTER → 2024-02-08 | Outpatient (CLI) | payer OTHER ==
[2024-02-08 11:28] LABS: HEMOGLOBIN 12.7 g/dl (12.0-15.5); MEAN CORPUSCULAR HEMOGLOBIN 28.1 pg (27.0-33.0); MEAN CORPUSCULAR HGB CONC 33.4 g/dl (32.0-36.5); MEAN CORPUSCULAR VOLUME 84.1 fl (80.0-96.0); PLATELET COUNT, AUTOMATED 269 10^3/uL (150-450); RED BLOOD COUNT 4.52 10^6/uL (4.00-5.40); WHITE BLOOD COUNT 8.9 10^3/uL (4.0-10.0)
[2024-02-08 11:55] LABS: ALBUMIN 3.7 G/DL (3.2-5.2); ALKALINE PHOSPHATASE 90 U/L (46-116); ALT/SGPT 16 U/L (7.0-40); AST/SGOT 10 U/L (<34); BILIRUBIN,TOTAL 0.8 MG/DL (0.3-1.2); BLOOD UREA NITROGEN 13 MG/DL (9-23); CALCIUM LEVEL 9.6 MG/DL (8.5-10.1); CARBON DIOXIDE LEVEL 29 MMOL/L (20-31); CHLORIDE LEVEL 106 MMOL/L (98-107); CREATININE FOR GFR 0.65 MG/DL (0.55-1.30); GLOMERULAR FILTRATION RATE > 60.0 (>60); GLUCOSE, FASTING 80 MG/DL (60-100); MAGNESIUM LEVEL 1.8 MG/DL (1.8-2.4); SODIUM LEVEL 139 MMOL/L (136-145); TOTAL PROTEIN 6.8 G/DL (5.7-8.2)
[2024-02-08 11:56] LABS: THYROID STIMULATING HORMONE 1.467 uIU/ML (0.55-4.78)
== END ==
LOC: M EKG 10:39
PROVIDERS: ATTEND Nurse Practitioner Psychiatric/Mental Health
DX: F90.8 Attention-deficit hyperactivity disorder, other type (principal)

== ENCOUNTER → 2024-03-22 | Outpatient (REF) | LOC: M EMP 11:47 | PROVIDERS: ATTEND Family Medicine | DX: Z01.89 Encounter for other specified special examinations (principal) ==

== ENCOUNTER → 2024-05-02 | Outpatient (CLI) | payer OTHER | LOC: M WUC 12:36 | PROVIDERS: ATTEND Student in an Organized Health Care Education/Training Program | DX: M25.572 Pain in left ankle and joints of left foot (principal) ==

== ENCOUNTER → 2024-08-18 | Outpatient (REF) | LOC: M EMP 10:40 | PROVIDERS: ATTEND Family Medicine | DX: Z11.52 Encounter for screening for COVID-19 (principal) ==

== ENCOUNTER → 2024-08-19 | Outpatient (REF) | payer OTHER ==
[2024-08-19 14:18] LABS: BASO # 0.1 10^3/uL (0.0-0.2); EOS # 0.7 10^3/uL (0.0-0.5); HEMATOCRIT 39.4 % (36.0-47.0); HEMOGLOBIN 12.8 g/dl (12.0-15.5); LYMPH # 2.6 10^3/uL (1.5-5.0); LYMPH % 24.3 % (24.0-44.0); MEAN CORPUSCULAR HEMOGLOBIN 27.6 pg (27.0-33.0); MEAN CORPUSCULAR HGB CONC 32.5 g/dl (32.0-36.5); MEAN CORPUSCULAR VOLUME 84.9 fl (80.0-96.0); MONO # 0.6 10^3/uL (0.0-0.8); MONO % 5.3 % (2.0-8.0); NEUTROPHILS # 6.8 10^3/uL (1.5-8.5); PLATELET COUNT, AUTOMATED 302 10^3/uL (150-450); RED BLOOD COUNT 4.64 10^6/uL (4.00-5.40); WHITE BLOOD COUNT 10.8 10^3/uL (4.0-10.0)
[2024-08-19 14:31] LABS: HEMOGLOBIN A1c 4.6 % (4.0-6.0)
[2024-08-19 14:34] LABS: ALBUMIN 3.7 G/DL (3.2-5.2); ALKALINE PHOSPHATASE 81 U/L (35-104); ALT/SGPT 22 U/L (7.0-40); AST/SGOT 17 U/L (<34); BILIRUBIN,TOTAL 0.4 MG/DL (0.3-1.2); BLOOD UREA NITROGEN 13 MG/DL (9-23); CALCIUM LEVEL 9.1 MG/DL (8.5-10.1); CARBON DIOXIDE LEVEL 29 MMOL/L (20-31); CHLORIDE LEVEL 103 MMOL/L (98-107); CHOLESTEROL LEVEL 151 MG/DL (<200); CHOLESTEROL RISK RATIO 2.88 (<5); CREATININE FOR GFR 0.63 MG/DL (0.55-1.30); FREE T4 1.25 NG/DL (0.89-1.76); GLOMERULAR FILTRATION RATE > 90.0 (>60); GLUCOSE, FASTING 77 MG/DL (60-100); HDL CHOLESTEROL 52.3 MG/DL (>40); LDL CHOLESTEROL 87.9 MG/DL (<100); NON-HDL-C 98.7 MG/DL; POTASSIUM SERUM 4.5 MMOL/L (3.5-5.1); SODIUM LEVEL 140 MMOL/L (136-145); THYROID PEROXIDASE ANTIBODY < 28.0 U/ML (<60.0); THYROID STIMULATING HORMONE 1.226 uIU/ML (0.55-4.78); TOTAL PROTEIN 7.1 G/DL (5.7-8.2); TRIGLYCERIDES LEVEL 54 MG/DL (<150)
== END ==
LOC: M SFHCADAM 10:49
PROVIDERS: ATTEND Physician Assistant Medical
DX: F51.02 Adjustment insomnia (principal); R53.82 Chronic fatigue, unspecified; R63.5 Abnormal weight gain

== ENCOUNTER → 2024-11-22 | Outpatient (REF) | LOC: M EMP 09:14 | PROVIDERS: ATTEND Family Medicine | DX: Z01.89 Encounter for other specified special examinations (principal) ==

== ENCOUNTER → 2024-12-15 | Outpatient (REF) | payer OTHER | LOC: M SFHCLERA 17:14 | DX: R35.0 Frequency of micturition (principal) ==

== ENCOUNTER → 2025-02-16 | Outpatient (REF) ==
[~2025-02-16] MED LIST changes: -IBUP-1022 PO; +IBUP600T42 PO
[2025-02-16 11:16] LABS: SOFIA COVID ANTIGEN NEGATIVE (NEGATIVE)
== END ==
LOC: M EMP 10:34
PROVIDERS: ATTEND Family Medicine
DX: Z11.52 Encounter for screening for COVID-19 (principal)

== ENCOUNTER → 2025-04-25 | Outpatient (REF) | LOC: M EMP 09:39 | PROVIDERS: ATTEND Family Medicine | DX: Z11.52 Encounter for screening for COVID-19 (principal) ==